=== PATIENT | male | born 1975 | race Caucasian/White ===

== ENCOUNTER 2018-04-25 18:49 | Inpatient (IN) | payer MEDICARE, OTHER ==
[~2018-04-25] VITALS: Ht 170.2 cm; Wt 87.4 kg
[~2018-04-25 18:49] MED LIST: ACET500 PO; ALBU90OI INH; ALLO300 PO; ALPR1 PO; AMOX500 PO; ARIP10 PO; ARIPIPRAZOLE5 MG PO; CEPH500 PO; CETI10 PO; CYAN1000 PO; ETOD300 PO; FLUO20 PO; HYDACE10B PO; HYDACE5 PO; HYDCHL12.5 PO; HYDPAM25 PO; Hair, Skin & N1 EACH PO; INDO50 PO; LISI20 PO; METO50ER PO; NAPR220 PO; NAPR500 PO; NAPR550 PO; OMEP20ER PO; OXYACE5T PO; PANT40 PO; PRAZ2 PO; PROM25 PO; PROP80ER PO; PROZAC; PYRI100 PO; RXHYD5325 PO; RXNAPNA550 PO; SALS750 PO; SERT100 PO; SUMA25 PO; SUMA6I SUBQ; THIA100 PO; TOPI25 PO; TOPI50 PO; TRAM50 PO
[2018-04-25] MEDS ORDERED: AMLO10 PO (19:06)
[2018-04-25] MEDS ORDERED: ATOR10 PO (19:07)
[2018-04-25] MEDS ORDERED: BUSP15 PO (19:08)
[2018-04-25] MEDS ORDERED: TYLECOD3 PO (19:09)
[2018-04-25] MEDS ORDERED: GABA600 PO (19:09)
[2018-04-25] MEDS ORDERED: HYDPAM50 PO (19:09)
[2018-04-25] MEDS ORDERED: LISI20 PO (19:10)
[2018-04-25] MEDS ORDERED: PANT40 PO (19:10)
[2018-04-25] MEDS ORDERED: PROP80ER PO (19:10)
[2018-04-25] MEDS ORDERED: TOPI100 PO (19:11)
[2018-04-25] MEDS ORDERED: SERT100 PO (19:11)
[2018-04-25] MEDS ORDERED: TRAZ50 PO (19:11)
[2018-04-25 21:14] LABS: Hemoglobin 12.8 g/dL (13.5-17.5); Mean Corpuscular HGB 33.2 pg (26.0-34.0); Mean Corpuscular HGB Conc 34.6 g/dL (31.5-36.5); Mean Corpuscular Volume 96 fL (80-100); Mean Platelet Volume 10.9 fL (9.1-12.4); Platelet Count 248 K/mm3 (150-400); RDW Coefficient Variation 13.2 % (11.7-14.2); RDW Standard Deviation 46.3 fL (35.1-46.3); Red Blood Cell Count 3.86 M/mm3 (4.30-5.90); White Blood Cell Count 13.99 K/mm3 (4.00-11.30)
[2018-04-25 21:30] LABS: BAND PERCENT MAN 1 % (0-8); BASOPHILS PERCENT MAN 0 % (0-2); EOSINOPHILS ABSOLUTE MAN 0.69 K/mm3 (0.00-0.68); EOSINOPHILS PERCENT MAN 5 % (0-6); LYMPHOCYTES ABSOLUTE MAN 1.95 K/mm3 (0.84-5.20); LYMPHOCYTES PERCENT MAN 14 % (21-46); MONOCYTES ABSOLUTE MAN 0.69 K/mm3 (0.16-1.47); MONOCYTES PERCENT MAN 5 % (4-13); MYELOCYTE ABSOLUTE MAN 0.13 K/mm3 (0.00-0.00); MYELOCYTE PERCENT MAN 1 % (0-0); NEUTROPHILS ABSOLUTE MAN 10.49 K/mm3 (1.96-9.15); SEG NEUTROPHILS PERCENT MAN 74 % (41-73); TOTAL CELLS COUNTED 100
[2018-04-25 21:34] LABS: Troponin I <0.015 ng/mL (0.000-0.040)
[2018-04-25 21:38] LABS: Thyroid Stimulating Hormone 0.382 uIU/mL (0.360-4.800)
[2018-04-25 22:19] LABS: U Amphetamine Screen Not Detected; U Barbituate Screen Not Detected; U Benzodiazapine Screen Not Detected; U Buprenorphine Screen Not Detected; U Cannabinoids Screen DETECTED; U Cocaine Screen Not Detected; U Methadone Screen Not Detected; U Methamphetamine Screen Not Detected; U Opiates Screen DETECTED; U Oxycodone Screen Not Detected; U Phencyclidine Screen Not Detected; U Propoxyphene Screen Not Detected
[2018-04-26 02:35] LABS: Hematocrit 36.7 % (37.0-53.0); Mean Corpuscular HGB 32.8 pg (26.0-34.0); Mean Corpuscular HGB Conc 35.4 g/dL (31.5-36.5); Mean Platelet Volume 9.5 fL (9.1-12.4); Platelet Count 232 K/mm3 (150-400); RDW Coefficient Variation 12.9 % (11.7-14.2); RDW Standard Deviation 43.8 fL (35.1-46.3); Red Blood Cell Count 3.96 M/mm3 (4.30-5.90)
[2018-04-26 02:37] LABS: Mean Corpuscular Volume 93 fL (80-100)
[2018-04-26 02:52] LABS: Anion Gap 7 mmol/L (6-16); Blood Urea Nitrogen 16 mg/dL (8-24); Bun/Creatinine Ratio 14.3 (12.0-20.0); CO2, Blood 24 mmol/L (21-32); Calcium, Blood 8.3 mg/dL (8.5-10.1); Chloride, Blood 112 mmol/L (98-108); Creatinine, Blood 1.12 mg/dL (0.60-1.20); Glomerular Filtration Rate >60 (60-); Glucose, Blood 98 mg/dL (70-99); Potassium, Blood 3.3 mmol/L (3.5-5.5); Sodium, Blood 143 mmol/L (136-145)
== END 2018-04-26 09:00 | disposition home or self-care (01) | DRG 310 ==
LOC: ER 18:49 → PCU 21:11
PROVIDERS: Nurse Practitioner Acute Care
DX: R00.1 Bradycardia, unspecified (principal); G43.909 Migraine, unspecified, not intractable, without status migrainosus; G47.33 Obstructive sleep apnea (adult) (pediatric); R12 Heartburn; F32.9 Major depressive disorder, single episode, unspecified; I10 Essential (primary) hypertension; I71.4 Abdominal aortic aneurysm, without rupture; J30.2 Other seasonal allergic rhinitis; M10.9 Gout, unspecified; G47.00 Insomnia, unspecified; T44.7X5A Adverse effect of beta-adrenoreceptor antagonists, initial encounter; Y92.9 Unspecified place or not applicable
CPT/HCPCS: 36415; 71045; 80048; 83880; 84443; 84484; 85007; 85027; 93005; 93010; 94660; 94762; 99285-25; J7030

== ENCOUNTER 2019-02-10 16:50 | Inpatient (IN) | payer OTHER, MEDICARE ==
[~2019-02-10] VITALS: Ht 175.3 cm; Wt 90.7 kg
[~2019-02-10 16:50] MED LIST changes: +AMLO10 PO; +ATOR10 PO; +BUSP15 PO; +GABA600 PO; +HYDPAM50 PO; +TOPI100 PO; +TRAZ50 PO; +TYLECOD3 PO
[2019-02-10 17:17] LABS: Source, Urine Voided
[2019-02-10 17:20] LABS: Appearance, Urine Clear (Clear); Bilirubin, Urine Neg (Neg); Blood, Urine Neg (Neg); Color, Urine Yellow (P-Yellow); Glucose Qualitative, Urine Neg (Neg); Ketones, Urine Neg (Neg); Leukocyte Esterase, Urine Neg (Neg); Nitrite, Urine Neg (Neg); Protein, Urine 1+ (Neg); Specific Gravity, Urine 1.005 (1.003-1.022); Urobilinogen, Urine NORM (Normal)
[2019-02-10 17:23] LABS: BASOPHILS ABSOLUTE AUTO 0.07 K/mm3 (0.00-0.23); BASOPHILS PERCENT AUTO 0 % (0-2); EOSINOPHILS ABSOLUTE AUTO 0.28 K/mm3 (0.00-0.68); EOSINOPHILS PERCENT AUTO 2 % (0-6); Hematocrit 36.8 % (37.0-53.0); Hemoglobin 13.3 g/dL (13.5-17.5); IMMATURE GRAN ABSOLUTE AUTO 0.11 K/mm3 (0.00-0.10); IMMATURE GRAN PERCENT AUTO 1 % (0-1); LYMPHOCYTES ABSOLUTE AUTO 6.94 K/mm3 (0.84-5.20); LYMPHOCYTES PERCENT AUTO 41 % (21-46); MONOCYTES ABSOLUTE AUTO 1.72 K/mm3 (0.16-1.47); MONOCYTES PERCENT AUTO 10 % (4-13); Mean Corpuscular HGB 32.4 pg (26.0-34.0); Mean Corpuscular HGB Conc 36.1 g/dL (31.5-36.5); Mean Corpuscular Volume 90 fL (80-100); Mean Platelet Volume 9.9 fL (9.1-12.4); NEUTROPHILS ABSOLUTE AUTO 7.96 K/mm3 (1.96-9.15); NEUTROPHILS PERCENT AUTO 47 % (41-73); Platelet Count 264 K/mm3 (150-400); RDW Coefficient Variation 12.8 % (11.7-14.2); RDW Standard Deviation 41.4 fL (35.1-46.3); Red Blood Cell Count 4.11 M/mm3 (4.30-5.90); White Blood Cell Count 17.08 K/mm3 (4.00-11.30)
[2019-02-10 17:41] LABS: Alanine Aminotransfer (ALT/SGP 27 U/L (12-78); Albumin, Blood 4.3 g/dL (3.4-5.0); Albumin/Globulin Ratio 1.3 (0.8-1.8); Alk Phos 61 U/L (50-136); Anion Gap 8 mmol/L (6-16); Aspartate Aminotrans (AST/SGOT 17 U/L (12-37); Bilirubin, Total 0.5 mg/dL (0.1-1.0); Blood Urea Nitrogen 18 mg/dL (8-24); CO2, Blood 25 mmol/L (21-32); Calcium, Blood 9.5 mg/dL (8.5-10.1); Chloride, Blood 106 mmol/L (98-108); Creatinine, Blood 1.06 mg/dL (0.60-1.20); Globulin, Blood 3.4 g/dL (2.2-4.0); Glomerular Filtration Rate >60 (60-); Glucose, Blood 103 mg/dL (70-99); Potassium, Blood 2.8 mmol/L (3.5-5.5); Sodium, Blood 139 mmol/L (136-145); Total Protein, Blood 7.7 g/dL (6.4-8.2)
[2019-02-10 21:09] LABS: U Amphetamine Screen Not Detected; U Barbituate Screen Not Detected; U Benzodiazapine Screen Not Detected; U Methamphetamine Screen Not Detected
[2019-02-10 21:10] LABS: U Buprenorphine Screen Not Detected; U Cannabinoids Screen DETECTED; U Cocaine Screen Not Detected; U Methadone Screen Not Detected; U Opiates Screen DETECTED; U Oxycodone Screen Not Detected; U Phencyclidine Screen Not Detected; U Propoxyphene Screen Not Detected
[2019-02-10] MEDS ORDERED: Vitamin D2000 UNIT PO (21:22)
[2019-02-10] MEDS ORDERED: LUBRICATING PL1 EACH BOTHEYES (21:23)
[2019-02-10] MEDS ORDERED: Cardiovid Plus1 EACH PO (21:24)
[2019-02-11 05:28] LABS: Hematocrit 37.5 % (37.0-53.0); Hemoglobin 13.2 g/dL (13.5-17.5); Mean Corpuscular HGB 31.9 pg (26.0-34.0); Mean Corpuscular HGB Conc 35.2 g/dL (31.5-36.5); Mean Corpuscular Volume 91 fL (80-100); Mean Platelet Volume 9.7 fL (9.1-12.4); Platelet Count 245 K/mm3 (150-400); RDW Coefficient Variation 13.1 % (11.7-14.2); Red Blood Cell Count 4.14 M/mm3 (4.30-5.90); White Blood Cell Count 22.17 K/mm3 (4.00-11.30)
[2019-02-11 05:46] LABS: Anion Gap 8 mmol/L (6-16); Blood Urea Nitrogen 12 mg/dL (8-24); Bun/Creatinine Ratio 12.8 (12.0-20.0); CO2, Blood 26 mmol/L (21-32); Calcium, Blood 8.5 mg/dL (8.5-10.1); Chloride, Blood 107 mmol/L (98-108); Creatinine, Blood 0.94 mg/dL (0.60-1.20); Glomerular Filtration Rate >60 (60-); Glucose, Blood 123 mg/dL (70-99); Potassium, Blood 3.3 mmol/L (3.5-5.5); Sodium, Blood 141 mmol/L (136-145)
--- NOTE | 2019-02-11 20:02 | NUR ---
NOC SHIFT SUMMARY 02/10/19 PATIENT EXTREMELY PAINFUL AND NAUSEATED SINCE ARRIVING ON FLOOR AT 2400. ABDOMINAL CRAMPING AND MIGRAINE HEADACHE UNRELIEVED WITH IV OR PO MEDS. PATIENT VOMITED WITHIN 10 MINUTES OF TRYING TO TAKE PO HEADACHE MEDICATIONS. SEVERAL UNMEASURED EMESIS AND VOIDS. ABDOMEN RIDGED AND TENDER UPPER AND LOWER QUADRANTS.
--- NOTE | 2019-02-12 04:49 | NUR ---
NOC SHIFT SUMMARY PATIENT MUCH IMPROVED OVERNIGHT. ABLE TO TAKE MOST PO MEDS AT HS WITH EXCEPTION OF FISH OIL. SLEPT THROUGH 2400 DOSE OF REGLAN PER REQUEST TO NOT BE WOKEN FOR THE MED IF HE WAS ASLEEP. NO EMESIS NOTED. BOWEL TONES MORE ACTIVE TIMES 4. MEDICATED TWICE OVERNIGHT FOR HEADACHE WITH DILAUDID.
--- NOTE | 2019-02-12 18:26 | NUR ---
SUMMARY PT IS A/O X4, IND IN ROOM, PLEASANT AFFECT HOWEVER HE STATES CONTINUING MIGRAINE H/A PAIN. HAVE GIVEN IV DILAUDID 0.5MG APPROX Q4 HRS, IMITREX 100MG X1, TYLENOL 650MG FOR INTERMITTANT RELIEF. PT HAS KEPT DOOR CLOSED & LIGHTS OUT, HAS SHOWERED TO ATTEMPT TO ALIEVE H/A. HE STATE MILD NAUSEA HOWEVER NO EMESIS, HAS BEEN ABLE TO EAT SM AMTS. VSS.
--- NOTE | 2019-02-13 06:32 | NUR ---
SHIFT SUMMARY PT IS A 43 Y/O MALE, ADMITTED FOR INTRACTABLE N/V AND MIGRAINE. HE IS A&O X 4, AND INDEPENDENT IN THE ROOM. PT REPORTED MILD NAUSEA AT BEDTIME, WHICH WAS RELIEVED WITH 4 MG ZOFRAN. HE WAS ABLE TO KEEP HIS MEDS DOWN WITH NO VOMITING OR EMESIS. PT WAS MEDICATED TWICE WITH PRN DILAUDID FOR HEADACHE. NO C/O SOB. VITAL SIGNS STABLE. NO OTHER ACUTE CHANGES IN PT CONDITION NOTED DURING THE NIGHT. WILL CONTINUE TO MONITOR AND TREAT PER EMAR UNTIL HAND OFF TO DAY SHIFT RN.
[2019-02-13 08:48] LABS: Hematocrit 37.7 % (37.0-53.0); Hemoglobin 13.1 g/dL (13.5-17.5)
[2019-02-13 09:04] LABS: Anion Gap 5 mmol/L (6-16); Blood Urea Nitrogen 17 mg/dL (8-24); Bun/Creatinine Ratio 15.9 (12.0-20.0); CO2, Blood 30 mmol/L (21-32); Calcium, Blood 8.8 mg/dL (8.5-10.1); Chloride, Blood 105 mmol/L (98-108); Creatinine, Blood 1.07 mg/dL (0.60-1.20); Glomerular Filtration Rate >60 (60-); Glucose, Blood 94 mg/dL (70-99); Potassium, Blood 3.5 mmol/L (3.5-5.5); Sodium, Blood 140 mmol/L (136-145)
[2019-02-13] MEDS ORDERED: METO10 (11:28)
[2019-02-13] MEDS ORDERED: Promethazine12.5 M1 PO (11:30)
--- NOTE | 2019-02-13 14:22 | NUR ---
DISCHARGE NOTE MEDICATIONS FAXED TO PREFERED PHARMACY. IV DC'D WNL. TELEMETRY DC'D. PT PROVIDED WITH HARDCOPY AND VERBAL INSTRUCTIONS FOR DISCHARGE RE: DIAGNOSES, MEDICATIONS, FOLLOW UP APPOINTMENTS. PT HAD NO FURTHER QUESTIONS. FAMILY NOTIFIED OF DISCHARGE. PERSONAL POSSESSIONS GATHERED. PT DRESSED IN PERSONAL CLOTHING. PT ESCORTED OUT BY [employer] VIA WHEELCHAIR
== END 2019-02-13 13:27 | disposition home or self-care (01) | DRG 103 ==
LOC: ER 16:50 → MEDS 16:51 → ENPENDDIS 02-13 11:00 → MEDS 02-13 13:27
PROVIDERS: Emergency Medicine; Internal Medicine; ADMIT Hospitalist
DX: G43.A1 Cyclical vomiting, in migraine, intractable (principal); T40.7X5A Adverse effect of cannabis (derivatives), initial encounter; G44.89 Other headache syndrome; I10 Essential (primary) hypertension; E87.6 Hypokalemia; G47.33 Obstructive sleep apnea (adult) (pediatric); F12.20 Cannabis dependence, uncomplicated; F41.8 Other specified anxiety disorders; K21.9 Gastro-esophageal reflux disease without esophagitis; E78.5 Hyperlipidemia, unspecified; I71.4 Abdominal aortic aneurysm, without rupture; F12.90 Cannabis use, unspecified, uncomplicated
CPT/HCPCS: 36415; 70450; 74177; 80048; 80053; 83690; 83735; 85014; 85018; 85025; 85027; 93005; 93010; 96361; 96365-59; 96366; 96372; 96375; 96376; 99285-25; A9270; C9113; G0378; J0780; J1170; J1200; J2405; J2550; J2765; J2920; J3030; J3480; J7030; Q9967

== ENCOUNTER 2019-06-12 11:53 | Emergency (ER) | payer MEDICARE, OTHER ==
[~2019-06-12] VITALS: Ht 167.6 cm; Wt 86.6 kg
[~2019-06-12 11:53] MED LIST changes: +Cardiovid Plus1 EACH PO; +LUBRICATING PL1 EACH BOTHEYES; +METO10; +Promethazine12.5 M1 PO; +Vitamin D2000 UNIT PO
[2019-06-12] MEDS ORDERED: CODE30 (12:16)
[2019-06-12] MEDS ORDERED: DIVA125EC (12:16)
[2019-06-12] MEDS ORDERED: GABA300 PO (12:17)
[2019-06-12] MEDS ORDERED: HYDHCL25 PO (12:17)
[2019-06-12] MEDS ORDERED: LISI20 PO (12:17)
[2019-06-12] MEDS ORDERED: PANT40 PO (12:18)
[2019-06-12] MEDS ORDERED: PROM25 (12:18)
[2019-06-12] MEDS ORDERED: METO10 PO (12:18)
[2019-06-12] MEDS ORDERED: SERT100 PO (12:19)
[2019-06-12] MEDS ORDERED: TRAZ50 (12:19)
[2019-06-12 13:59] LABS: BASOPHILS ABSOLUTE AUTO 0.05 K/mm3 (0.00-0.23); BASOPHILS PERCENT AUTO 0 % (0-2); EOSINOPHILS ABSOLUTE AUTO 0.08 K/mm3 (0.00-0.68); EOSINOPHILS PERCENT AUTO 1 % (0-6); Hematocrit 38.8 % (37.0-53.0); Hemoglobin 13.7 g/dL (13.5-17.5); IMMATURE GRAN ABSOLUTE AUTO 0.07 K/mm3 (0.00-0.10); IMMATURE GRAN PERCENT AUTO 1 % (0-1); LYMPHOCYTES ABSOLUTE AUTO 1.67 K/mm3 (0.84-5.20); LYMPHOCYTES PERCENT AUTO 14 % (21-46); MONOCYTES ABSOLUTE AUTO 0.92 K/mm3 (0.16-1.47); MONOCYTES PERCENT AUTO 8 % (4-13); Mean Corpuscular HGB 32.4 pg (26.0-34.0); Mean Corpuscular HGB Conc 35.3 g/dL (31.5-36.5); Mean Corpuscular Volume 92 fL (80-100); Mean Platelet Volume 10.7 fL (9.1-12.4); NEUTROPHILS PERCENT AUTO 76 % (41-73); Platelet Count 294 K/mm3 (150-400); RDW Coefficient Variation 12.2 % (11.7-14.2); RDW Standard Deviation 41.1 fL (35.1-46.3); Red Blood Cell Count 4.23 M/mm3 (4.30-5.90); White Blood Cell Count 11.69 K/mm3 (4.00-11.30)
[2019-06-12 14:22] LABS: Alanine Aminotransfer (ALT/SGP 19 U/L (12-78); Alk Phos 58 U/L (50-136); Anion Gap 8 mmol/L (6-16); Aspartate Aminotrans (AST/SGOT 15 U/L (12-37); Bilirubin, Total 0.3 mg/dL (0.1-1.0); Blood Urea Nitrogen 14 mg/dL (8-24); Bun/Creatinine Ratio 15.5 (12.0-20.0); CO2, Blood 24 mmol/L (21-32); Chloride, Blood 106 mmol/L (98-108); Glomerular Filtration Rate >60 (60-); Glucose, Blood 104 mg/dL (70-99); Potassium, Blood 3.6 mmol/L (3.5-5.5); Sodium, Blood 138 mmol/L (136-145)
[2019-06-12 14:56] LABS: Ethanol (Alcohol), Blood, Med <3 mg/dL; Magnesium, Blood 2.1 mg/dL (1.6-2.4)
[2019-06-12 14:59] LABS: Thyroid Stimulating Hormone 0.915 uIU/mL (0.360-4.800)
[2019-06-12 15:17] LABS: Valproic Acid 28.3 ug/mL (50.0-100.0)
[2019-06-12 15:55] LABS: U Cannabinoids Screen DETECTED; U Opiates Screen DETECTED
[2019-06-12 15:56] LABS: U Amphetamine Screen Not Detected; U Barbituate Screen Not Detected; U Benzodiazapine Screen Not Detected; U Buprenorphine Screen Not Detected; U Cocaine Screen Not Detected; U Methadone Screen Not Detected; U Methamphetamine Screen Not Detected; U Oxycodone Screen Not Detected; U Propoxyphene Screen Not Detected
[2019-06-12] MEDS ORDERED: LEVE500 PO ×2 (16:54)
[2019-06-12] MEDS ORDERED: Ondansetron Odt8 MG MM (16:54)
== END 2019-06-12 17:44 | disposition home or self-care (01) ==
LOC: ER 11:53
PROVIDERS: Emergency Medicine
DX: R56.9 Unspecified convulsions (principal); F43.10 Post-traumatic stress disorder, unspecified; F12.10 Cannabis abuse, uncomplicated; G43.909 Migraine, unspecified, not intractable, without status migrainosus; I71.4 Abdominal aortic aneurysm, without rupture; Z79.899 Other long term (current) drug therapy; I10 Essential (primary) hypertension; E78.5 Hyperlipidemia, unspecified
CPT/HCPCS: 70450; 80053; 80164; 83735; 84146; 84443; 85025; 93005; 93010; 96361; 96372-59; 96374; 96375; 96376; 99285-25; G0480; J1200; J1630; J2405; J2765; J3030; J7030

== ENCOUNTER 2019-06-22 14:37 | Emergency (ER) | payer MEDICARE, OTHER ==
[~2019-06-22] VITALS: Ht 167.6 cm; Wt 87.1 kg
[~2019-06-22 14:37] MED LIST changes: +CODE30; +DIVA125EC PO; +Gabapentin600 MG PO; +HYDHCL25 PO; +LEVE500 PO; +METO10 PO; +Ondansetron Odt8 MG MM; +PROM25
[2019-06-22] MEDS ORDERED: CHLO25B PO (15:07)
[2019-06-22] MEDS ORDERED: IBUP800 PO (15:10)
[2019-06-22 15:12] LABS: BASOPHILS ABSOLUTE AUTO 0.06 K/mm3 (0.00-0.23); BASOPHILS PERCENT AUTO 1 % (0-2); EOSINOPHILS ABSOLUTE AUTO 0.66 K/mm3 (0.00-0.68); EOSINOPHILS PERCENT AUTO 6 % (0-6); Hematocrit 33.6 % (37.0-53.0); Hemoglobin 11.7 g/dL (13.5-17.5); IMMATURE GRAN ABSOLUTE AUTO 0.04 K/mm3 (0.00-0.10); IMMATURE GRAN PERCENT AUTO 0 % (0-1); LYMPHOCYTES ABSOLUTE AUTO 3.79 K/mm3 (0.84-5.20); LYMPHOCYTES PERCENT AUTO 36 % (21-46); MONOCYTES ABSOLUTE AUTO 1.34 K/mm3 (0.16-1.47); MONOCYTES PERCENT AUTO 13 % (4-13); Mean Corpuscular HGB 32.1 pg (26.0-34.0); Mean Corpuscular HGB Conc 34.8 g/dL (31.5-36.5); Mean Corpuscular Volume 92 fL (80-100); NEUTROPHILS ABSOLUTE AUTO 4.75 K/mm3 (1.96-9.15); NEUTROPHILS PERCENT AUTO 45 % (41-73); Platelet Count 273 K/mm3 (150-400); RDW Coefficient Variation 12.2 % (11.7-14.2); RDW Standard Deviation 41.5 fL (35.1-46.3); Red Blood Cell Count 3.64 M/mm3 (4.30-5.90); White Blood Cell Count 10.64 K/mm3 (4.00-11.30)
[2019-06-22] MEDS ORDERED: LEVE500 PO ×2 (15:12)
[2019-06-22 15:47] LABS: Alanine Aminotransfer (ALT/SGP 15 U/L (12-78); Albumin, Blood 3.6 g/dL (3.4-5.0); Albumin/Globulin Ratio 1.1 (0.8-1.8); Alk Phos 52 U/L (50-136); Anion Gap 3 mmol/L (6-16); Aspartate Aminotrans (AST/SGOT 10 U/L (12-37); Bilirubin, Total 0.3 mg/dL (0.1-1.0); Blood Urea Nitrogen 15 mg/dL (8-24); Bun/Creatinine Ratio 16.8 (12.0-20.0); CO2, Blood 30 mmol/L (21-32); Calcium, Blood 8.9 mg/dL (8.5-10.1); Chloride, Blood 108 mmol/L (98-108); Creatinine, Blood 0.89 mg/dL (0.60-1.20); Globulin, Blood 3.3 g/dL (2.2-4.0); Glomerular Filtration Rate >60 (60-); Glucose, Blood 91 mg/dL (70-99); Potassium, Blood 3.4 mmol/L (3.5-5.5); Sodium, Blood 141 mmol/L (136-145); Total Protein, Blood 6.9 g/dL (6.4-8.2); Troponin I <0.015 ng/mL (0.000-0.040)
[2019-06-22] MEDS ORDERED: Norco 5-325 Ta1 EACH PO (16:40)
== END 2019-06-22 17:18 | disposition home or self-care (01) ==
LOC: ER 14:37
PROVIDERS: Emergency Medicine; Physician Assistant
DX: R07.9 Chest pain, unspecified (principal); F32.9 Major depressive disorder, single episode, unspecified; I10 Essential (primary) hypertension; G43.909 Migraine, unspecified, not intractable, without status migrainosus
CPT/HCPCS: 71046; 71275; 74175; 80053; 80164; 83690; 83880; 84484; 85025; 93005; 93010; 96374-59; 96375-59; 99285-25; J1170; J2405; Q9967

== ENCOUNTER 2019-06-28 14:41 | Emergency (ER) | payer MEDICARE, OTHER ==
[~2019-06-28] VITALS: Ht 167.6 cm; Wt 89.8 kg
[~2019-06-28 14:41] MED LIST changes: +CHLO25B PO; +IBUP800 PO; +Norco 5-325 Ta1 EACH PO
[2019-06-28 15:06] LABS: BASOPHILS ABSOLUTE AUTO 0.06 K/mm3 (0.00-0.23); BASOPHILS PERCENT AUTO 0 % (0-2); EOSINOPHILS PERCENT AUTO 5 % (0-6); Hematocrit 38.1 % (37.0-53.0); Hemoglobin 13.8 g/dL (13.5-17.5); IMMATURE GRAN ABSOLUTE AUTO 0.05 K/mm3 (0.00-0.10); IMMATURE GRAN PERCENT AUTO 0 % (0-1); LYMPHOCYTES ABSOLUTE AUTO 4.84 K/mm3 (0.84-5.20); LYMPHOCYTES PERCENT AUTO 32 % (21-46); MONOCYTES ABSOLUTE AUTO 1.28 K/mm3 (0.16-1.47); MONOCYTES PERCENT AUTO 9 % (4-13); Mean Corpuscular HGB 32.2 pg (26.0-34.0); Mean Corpuscular HGB Conc 36.2 g/dL (31.5-36.5); Mean Corpuscular Volume 89 fL (80-100); Mean Platelet Volume 10.2 fL (9.1-12.4); NEUTROPHILS ABSOLUTE AUTO 8.06 K/mm3 (1.96-9.15); NEUTROPHILS PERCENT AUTO 54 % (41-73); Platelet Count 295 K/mm3 (150-400); RDW Coefficient Variation 12.3 % (11.7-14.2); RDW Standard Deviation 40.2 fL (35.1-46.3); Red Blood Cell Count 4.28 M/mm3 (4.30-5.90); White Blood Cell Count 14.99 K/mm3 (4.00-11.30)
[2019-06-28] MEDS ORDERED: PROM25 (15:17)
[2019-06-28] MEDS ORDERED: METO10 (15:17)
[2019-06-28 15:32] LABS: Alanine Aminotransfer (ALT/SGP 28 U/L (12-78); Alk Phos 66 U/L (50-136); Anion Gap 8 mmol/L (6-16); Aspartate Aminotrans (AST/SGOT 12 U/L (12-37); Bilirubin, Total 0.4 mg/dL (0.1-1.0); Blood Urea Nitrogen 16 mg/dL (8-24); Bun/Creatinine Ratio 12.5 (12.0-20.0); CO2, Blood 27 mmol/L (21-32); Calcium, Blood 9.4 mg/dL (8.5-10.1); Chloride, Blood 106 mmol/L (98-108); Creatinine, Blood 1.28 mg/dL (0.60-1.20); Globulin, Blood 4.1 g/dL (2.2-4.0); Glomerular Filtration Rate >60 (60-); Glucose, Blood 90 mg/dL (70-99); Potassium, Blood 2.9 mmol/L (3.5-5.5); Sodium, Blood 141 mmol/L (136-145); Total Protein, Blood 8.1 g/dL (6.4-8.2); Troponin I <0.015 ng/mL (0.000-0.040)
== END 2019-06-28 17:30 | disposition home or self-care (01) ==
LOC: ER 14:41
PROVIDERS: Physician Assistant
DX: R07.9 Chest pain, unspecified (principal); I71.2 Thoracic aortic aneurysm, without rupture; Q23.1 Congenital insufficiency of aortic valve; G40.909 Epilepsy, unspecified, not intractable, without status epilepticus; I10 Essential (primary) hypertension; G43.909 Migraine, unspecified, not intractable, without status migrainosus; F32.9 Major depressive disorder, single episode, unspecified; Z79.899 Other long term (current) drug therapy
CPT/HCPCS: 71046; 71275; 80053; 84484; 85025; 93005; 93010; 96374; 96375; 99285-25; J1170; J2270; Q9967

== ENCOUNTER 2021-07-04 07:49 | Day surgery (SDC) | payer OTHER ==
[~2021-07-04] VITALS: Ht 167.6 cm; Wt 80.1 kg
--- NOTE | 2021-07-04 09:03 | NUR ---
07/04/21 0903 Francisco [id number] GIVEN PER ORDERS WHILE IN PRE OP DUE TO C/O NAUSEA.
--- NOTE | 2021-07-04 09:48 | NUR ---
07/04/21 0948 Mauricio Mg 0.15MG EPI ADDED TO 30MLS 0.5% BUPIVACAINE TO ACHIEVE SOLUTION OF 1:200,000.
--- NOTE | 2021-07-04 11:02 | NUR ---
07/04/21 1102 Julee Mukherjee REPORT WAS TAKEN FROM BRYCE HAZEL AT 10:55; BRYCE MEDINA TOOK CARE OF PATIENT AT THIS TIME.
== END 2021-07-04 11:33 | disposition home or self-care (01) ==
LOC: ORSCSDS 07:49
PROVIDERS: Orthopaedic Surgery
PROC: 0SBC4ZZ Excision of Right Knee Joint, Percutaneous Endoscopic Approach (ICD-10-PCS; principal; 2021-07-04 09:15)
DX: S83.241A Other tear of medial meniscus, current injury, right knee, initial encounter (principal); M94.261 Chondromalacia, right knee; I10 Essential (primary) hypertension; E78.5 Hyperlipidemia, unspecified; G47.33 Obstructive sleep apnea (adult) (pediatric); F41.8 Other specified anxiety disorders; Z79.899 Other long term (current) drug therapy
CPT/HCPCS: J0171; J0690; J1100; J1885; J2250; J2405; J2704; J3010

== ENCOUNTER 2021-08-21 19:07 | Emergency (ER) | payer OTHER ==
[~2021-08-21] VITALS: Ht 167.6 cm; Wt 77.1 kg
[2021-08-21] MEDS ORDERED: CARBOXYMETHYLC1 EACH BOTHEYES (19:30)
[2021-08-21] MEDS ORDERED: CODE30 (19:31)
[2021-08-21] MEDS ORDERED: FISH OIL 1,2001 EAC4 PO (19:32)
[2021-08-21] MEDS ORDERED: DOCU100 PO (19:32)
[2021-08-21] MEDS ORDERED: PANT40 PO (19:33)
[2021-08-21] MEDS ORDERED: METO50ER PO (19:33)
[2021-08-21] MEDS ORDERED: MIRALAX11910 PO (19:33)
[2021-08-21] MEDS ORDERED: ONDA4ODT MM (19:33)
[2021-08-21] MEDS ORDERED: SENN187 PO (19:33)
[2021-08-21 19:44] LABS: BASOPHILS ABSOLUTE AUTO 0.07 K/mm3 (0.00-0.23); BASOPHILS PERCENT AUTO 1 % (0-2); EOSINOPHILS ABSOLUTE AUTO 0.79 K/mm3 (0.00-0.68); EOSINOPHILS PERCENT AUTO 6 % (0-6); Hematocrit 34.1 % (37.0-53.0); Hemoglobin 12.2 g/dL (13.5-17.5); IMMATURE GRAN ABSOLUTE AUTO 0.07 K/mm3 (0.00-0.10); IMMATURE GRAN PERCENT AUTO 1 % (0-1); LYMPHOCYTES ABSOLUTE AUTO 4.06 K/mm3 (0.84-5.20); LYMPHOCYTES PERCENT AUTO 32 % (21-46); MONOCYTES ABSOLUTE AUTO 1.09 K/mm3 (0.16-1.47); MONOCYTES PERCENT AUTO 9 % (4-13); Mean Corpuscular HGB 32.3 pg (26.0-34.0); Mean Corpuscular HGB Conc 35.8 g/dL (31.5-36.5); Mean Corpuscular Volume 90 fL (80-100); Mean Platelet Volume 11.2 fL (9.1-12.4); NEUTROPHILS ABSOLUTE AUTO 6.58 K/mm3 (1.96-9.15); NEUTROPHILS PERCENT AUTO 52 % (41-73); Platelet Count 217 K/mm3 (150-400); RDW Coefficient Variation 11.9 % (11.7-14.2); RDW Standard Deviation 38.9 fL (35.1-46.3); Red Blood Cell Count 3.78 M/mm3 (4.30-5.90); White Blood Cell Count 12.66 K/mm3 (4.00-11.30)
[2021-08-21 19:56] LABS: Alanine Aminotransfer (ALT/SGP 16 U/L (12-78); Albumin, Blood 3.3 g/dL (3.4-5.0); Albumin/Globulin Ratio 0.8 (0.8-1.8); Alk Phos 71 U/L (50-136); Anion Gap 7 mmol/L (6-16); Aspartate Aminotrans (AST/SGOT 10 U/L (12-37); Bilirubin, Total 0.3 mg/dL (0.1-1.0); Blood Urea Nitrogen 20 mg/dL (8-24); Bun/Creatinine Ratio 16.8 (12.0-20.0); CO2, Blood 33 mmol/L (21-32); Calcium, Blood 8.6 mg/dL (8.5-10.1); Chloride, Blood 93 mmol/L (98-108); Creatinine, Blood 1.19 mg/dL (0.60-1.20); Globulin, Blood 3.9 g/dL (2.2-4.0); Glomerular Filtration Rate >60 (60-); Glucose, Blood 108 mg/dL (70-99); Potassium, Blood 2.8 mmol/L (3.5-5.5); Sodium, Blood 133 mmol/L (136-145); Total Protein, Blood 7.2 g/dL (6.4-8.2)
== END 2021-08-22 00:06 | disposition home or self-care (01) ==
LOC: ER 19:07
PROVIDERS: Emergency Medicine
DX: R07.9 Chest pain, unspecified (principal); R51.9 Headache, unspecified; E78.5 Hyperlipidemia, unspecified; I10 Essential (primary) hypertension; Z79.899 Other long term (current) drug therapy
CPT/HCPCS: 71275; 80053; 84484; 85025; 93005; 93010; 96374-59; 96375-59; 96376-59; 99284-25; A9270; J2270; J2405; Q9967

== ENCOUNTER 2021-10-18 18:29 | Emergency (ER) | payer OTHER ==
[~2021-10-18] VITALS: Ht 167.6 cm; Wt 86.2 kg
[~2021-10-18 18:29] MED LIST changes: +CARBOXYMETHYLC1 EACH BOTHEYES; +DOCU100 PO; +FISH OIL 1,2001 EAC4 PO; +MIRALAX11910 PO; +ONDA4ODT MM; +SENN187 PO
[2021-10-18 19:32] LABS: Influenza A, PCR NEGATIVE (NEGATIVE); Influenza B, PCR NEGATIVE (NEGATIVE); Resp Syncytial Virus, PCR NEGATIVE (NEGATIVE)
[2021-10-18 19:41] LABS: SARS-Cov-2 (COVID-19) PCR, MMC POSITIVE (NEGATIVE)
== END 2021-10-19 02:09 | disposition home or self-care (01) ==
LOC: ER 18:29
PROVIDERS: Physician Assistant
DX: U07.1 COVID-19 (principal); I10 Essential (primary) hypertension; E78.5 Hyperlipidemia, unspecified; G47.33 Obstructive sleep apnea (adult) (pediatric); Z79.899 Other long term (current) drug therapy
CPT/HCPCS: 0241U; 93005; 93010; 99283-25; A9270; M0222

== ENCOUNTER 2021-12-16 18:53 | Emergency (ER) | payer OTHER ==
[~2021-12-16] VITALS: Ht 167.6 cm; Wt 76.2 kg
[2021-12-16 19:55] LABS: BASOPHILS ABSOLUTE AUTO 0.06 K/mm3 (0.00-0.23); BASOPHILS PERCENT AUTO 1 % (0-2); EOSINOPHILS ABSOLUTE AUTO 0.46 K/mm3 (0.00-0.68); EOSINOPHILS PERCENT AUTO 4 % (0-6); Hematocrit 38.9 % (37.0-53.0); Hemoglobin 13.6 g/dL (13.5-17.5); IMMATURE GRAN ABSOLUTE AUTO 0.06 K/mm3 (0.00-0.10); IMMATURE GRAN PERCENT AUTO 1 % (0-1); LYMPHOCYTES ABSOLUTE AUTO 2.42 K/mm3 (0.84-5.20); LYMPHOCYTES PERCENT AUTO 22 % (21-46); MONOCYTES ABSOLUTE AUTO 0.99 K/mm3 (0.16-1.47); MONOCYTES PERCENT AUTO 9 % (4-13); Mean Corpuscular HGB 32.7 pg (26.0-34.0); Mean Corpuscular Volume 94 fL (80-100); Mean Platelet Volume 10.2 fL (9.1-12.4); NEUTROPHILS ABSOLUTE AUTO 7.28 K/mm3 (1.96-9.15); NEUTROPHILS PERCENT AUTO 65 % (41-73); Platelet Count 277 K/mm3 (150-400); RDW Coefficient Variation 12.4 % (11.7-14.2); RDW Standard Deviation 42.7 fL (35.1-46.3); Red Blood Cell Count 4.16 M/mm3 (4.30-5.90); White Blood Cell Count 11.27 K/mm3 (4.00-11.30)
[2021-12-16 20:17] LABS: Magnesium, Blood 2.3 mg/dL (1.6-2.4)
[2021-12-16 20:20] LABS: Albumin, Blood 3.6 g/dL (3.4-5.0); Albumin/Globulin Ratio 0.9 (0.8-1.8); Bilirubin, Total 0.4 mg/dL (0.1-1.0); Bun/Creatinine Ratio 12.6 (12.0-20.0); Calcium, Blood 9.5 mg/dL (8.5-10.1); Creatinine, Blood 1.03 mg/dL (0.60-1.20); Globulin, Blood 3.9 g/dL (2.2-4.0); Potassium, Blood 3.9 mmol/L (3.5-5.5); Thyroid Stimulating Hormone 1.25 uIU/mL (0.360-4.800); Total Protein, Blood 7.5 g/dL (6.4-8.2)
== END 2021-12-16 21:41 | disposition home or self-care (01) ==
LOC: ER 18:53
PROVIDERS: Student in an Organized Health Care Education/Training Program
DX: R53.1 Weakness (principal); R20.2 Paresthesia of skin; I10 Essential (primary) hypertension; E78.5 Hyperlipidemia, unspecified; G47.33 Obstructive sleep apnea (adult) (pediatric); Z79.899 Other long term (current) drug therapy
CPT/HCPCS: 36415; 80053; 83735; 84443; 85025; 93005; 93010; 99285-25; A9270

== ENCOUNTER 2023-02-11 12:30 | Emergency (ER) | payer OTHER ==
[~2023-02-11] VITALS: Ht 167.6 cm; Wt 80.3 kg
[~2023-02-11 12:30] MED LIST changes: -AMLO10 PO; -BUSP15 PO; +BUSP5 PO; +CODACE30 PO; +CODE30 PO; -DIVA125EC PO; +DIVA250EC PO; +LEVSOD25 PO; +NORVASC10 MG PO; +POTCHL20ER PO
[2023-02-11 12:56] LABS: BASOPHILS ABSOLUTE AUTO 0.05 K/mm3 (0.00-0.23); BASOPHILS PERCENT AUTO 1 % (0-2); EOSINOPHILS ABSOLUTE AUTO 0.22 K/mm3 (0.00-0.68); EOSINOPHILS PERCENT AUTO 2 % (0-6); Hematocrit 37.9 % (37.0-53.0); Hemoglobin 13.5 g/dL (13.5-17.5); IMMATURE GRAN ABSOLUTE AUTO 0.02 K/mm3 (0.00-0.10); IMMATURE GRAN PERCENT AUTO 0 % (0-1); LYMPHOCYTES ABSOLUTE AUTO 3.16 K/mm3 (0.84-5.20); LYMPHOCYTES PERCENT AUTO 33 % (21-46); MONOCYTES ABSOLUTE AUTO 0.91 K/mm3 (0.16-1.47); MONOCYTES PERCENT AUTO 10 % (4-13); Mean Corpuscular HGB Conc 35.6 g/dL (31.5-36.5); Mean Corpuscular Volume 93 fL (80-100); Mean Platelet Volume 11.3 fL (9.1-12.4); NEUTROPHILS ABSOLUTE AUTO 5.13 K/mm3 (1.96-9.15); NEUTROPHILS PERCENT AUTO 54 % (41-73); Platelet Count 200 K/mm3 (150-400); RDW Coefficient Variation 11.7 % (11.7-14.2); RDW Standard Deviation 39.3 fL (35.1-46.3); Red Blood Cell Count 4.09 M/mm3 (4.30-5.90); White Blood Cell Count 9.49 K/mm3 (4.00-11.30)
[2023-02-11 13:18] LABS: Albumin, Blood 3.7 g/dL (3.4-5.0); Albumin/Globulin Ratio 0.9 (0.8-1.8); Bilirubin, Total 0.9 mg/dL (0.1-1.0); Bun/Creatinine Ratio 15.7 (12.0-20.0); Calcium, Blood 9.2 mg/dL (8.5-10.1); Creatinine, Blood 1.15 mg/dL (0.60-1.20); Globulin, Blood 3.9 g/dL (2.2-4.0); Potassium, Blood 3.3 mmol/L (3.5-5.5); Total Protein, Blood 7.6 g/dL (6.4-8.2)
[2023-02-11 18:30] VITALS: BP 139/111
== END 2023-02-11 18:49 | disposition home or self-care (01) ==
LOC: ER 12:30
PROVIDERS: Emergency Medicine
DX: R07.9 Chest pain, unspecified (principal); R51.9 Headache, unspecified; I10 Essential (primary) hypertension; G47.33 Obstructive sleep apnea (adult) (pediatric); E78.5 Hyperlipidemia, unspecified; Z91.048 Other nonmedicinal substance allergy status; Z79.899 Other long term (current) drug therapy; G47.00 Insomnia, unspecified
CPT/HCPCS: 71046; 71275; 80053; 84484; 85025; 93005; 93010; 96365; 96375; 99284-25; J1885; J2270; J2405; J7050; Q9967

== ENCOUNTER 2024-02-14 12:12 | Day surgery (SDC) | payer OTHER ==
[~2024-02-14] VITALS: Ht 167.6 cm; Wt 76.0 kg
[~2024-02-14 12:12] MED LIST changes: +Lactated Ringer's 1,000 ML IV ONE; +Lidocaine 2% 5 ML SDV ONE; +Lidocaine HCl/Pf 1% 5 ML VIAL ONE; +Robaxin750 MG PO
[2024-02-14] MEDS ORDERED: ACET500 (13:52)
[2024-02-14] MEDS ORDERED: AMOX500 (13:53)
[2024-02-14] MEDS ORDERED: BUPRENORPHINE (13:55)
[2024-02-14] MEDS ORDERED: CHLO25B (13:56)
[2024-02-14] MEDS ORDERED: NARCAN4 M1 (13:58)
[2024-02-14] MEDS ORDERED: METO50ER (13:59)
[2024-02-14] MEDS ORDERED: DOCU100 (14:00)
[2024-02-14] MEDS ORDERED: SIME80CH (14:01)
[2024-02-14] MEDS ORDERED: LIDO700A20 (14:01)
[2024-02-14] MEDS ORDERED: ZADITOR5 M1 (14:01)
[2024-02-14] MEDS ORDERED: propofoL 50 ML IV ONE (14:28)
[2024-02-14] MEDS ORDERED: Lactated Ringer's 1,000 ML IV ONE (14:29)
[2024-02-14 15:50] VITALS: BP 157/103
== END 2024-02-14 15:54 | disposition home or self-care (01) ==
LOC: ORSCSDS 12:12
PROVIDERS: Internal Medicine Gastroenterology
PROC: 0DBL8ZX Excision of Transverse Colon, Via Natural or Artificial Opening Endoscopic, Diagnostic (ICD-10-PCS; principal; 2024-02-14 13:45)
PROC: 0DBH8ZX Excision of Cecum, Via Natural or Artificial Opening Endoscopic, Diagnostic (ICD-10-PCS; principal; 2024-02-14 13:45)
PROC: 0DB58ZX Excision of Esophagus, Via Natural or Artificial Opening Endoscopic, Diagnostic (ICD-10-PCS; principal; 2024-02-14 13:45)
PROC: 0DB78ZX Excision of Stomach, Pylorus, Via Natural or Artificial Opening Endoscopic, Diagnostic (ICD-10-PCS; principal; 2024-02-14 13:45)
DX: K21.9 Gastro-esophageal reflux disease without esophagitis (principal); R11.0 Nausea; Z15.09 Genetic susceptibility to other malignant neoplasm; K59.00 Constipation, unspecified; D12.0 Benign neoplasm of cecum; D12.3 Benign neoplasm of transverse colon; K22.70 Barrett's esophagus without dysplasia; K29.70 Gastritis, unspecified, without bleeding; K57.10 Diverticulosis of small intestine without perforation or abscess without bleeding; G47.33 Obstructive sleep apnea (adult) (pediatric); I10 Essential (primary) hypertension; Z79.899 Other long term (current) drug therapy
CPT/HCPCS: 88305; 88312; 88342; J2001; J2003; J2704; J7120

== ENCOUNTER 2024-05-17 12:15 | Day surgery (SDC) | payer OTHER ==
[~2024-05-17] VITALS: Ht 167.6 cm; Wt 74.4 kg
[~2024-05-17 12:15] MED LIST changes: +ACET500; +AMOX500; +BUPRENORPHINE; +CHLO25B; +DOCU100; +LIDO700A20; -Lidocaine 2% 5 ML SDV ONE; -Lidocaine HCl/Pf 1% 5 ML VIAL ONE; +METO50ER; +NARCAN4 M1; +SIME80CH; +ZADITOR5 M1; +propofoL 50 ML IV ONE
[2024-05-17] MEDS ORDERED: Lactated Ringer's 1,000 ML IV ONE (13:14)
[2024-05-17] MEDS ORDERED: Methylene Blue 1% 100 MG/10 ML VIAL ONE (13:37)
[2024-05-17] MEDS ORDERED: propofoL 50 ML IV ONE (14:18)
[2024-05-17] MEDS ORDERED: NS 500 ML IV ONE (14:26)
[2024-05-17 15:13] VITALS: BP 109/76
== END 2024-05-17 15:10 | disposition home or self-care (01) ==
LOC: ORSCSDS 12:15
PROVIDERS: Internal Medicine Gastroenterology
PROC: 0DBK8ZX Excision of Ascending Colon, Via Natural or Artificial Opening Endoscopic, Diagnostic (ICD-10-PCS; principal; 2024-05-17 13:45)
PROC: 0DBH8ZX Excision of Cecum, Via Natural or Artificial Opening Endoscopic, Diagnostic (ICD-10-PCS; principal; 2024-05-17 13:45)
PROC: 3E0H8KZ Introduction of Other Diagnostic Substance into Lower GI, Via Natural or Artificial Opening Endoscopic (ICD-10-PCS; principal; 2024-05-17 13:45)
DX: D12.0 Benign neoplasm of cecum (principal); D12.2 Benign neoplasm of ascending colon; K57.30 Diverticulosis of large intestine without perforation or abscess without bleeding; Z15.09 Genetic susceptibility to other malignant neoplasm; Z80.0 Family history of malignant neoplasm of digestive organs; G47.33 Obstructive sleep apnea (adult) (pediatric); K21.9 Gastro-esophageal reflux disease without esophagitis; R12 Heartburn; I10 Essential (primary) hypertension; F41.8 Other specified anxiety disorders; E78.2 Mixed hyperlipidemia; Z95.2 Presence of prosthetic heart valve; Z95.0 Presence of cardiac pacemaker; I25.10 Atherosclerotic heart disease of native coronary artery without angina pectoris; Z79.899 Other long term (current) drug therapy
CPT/HCPCS: 88305; J2704; J7120; Q9968

== ENCOUNTER 2025-01-10 17:19 | Emergency (ER) | payer OTHER ==
[~2025-01-10] VITALS: Ht 167.6 cm; Wt 83.0 kg
[~2025-01-10 17:19] MED LIST changes: -Lactated Ringer's 1,000 ML IV ONE; -propofoL 50 ML IV ONE
[2025-01-10] MEDS ORDERED: Ondansetron HCl 2 MG / ML 2ML Vial IV ONE (17:35)
[2025-01-10 18:06] LABS: Hematocrit 32.9 % (37.0-53.0); Hemoglobin 11.9 g/dL (13.5-17.5); Mean Corpuscular HGB Conc 36.2 g/dL (31.5-36.5); Mean Corpuscular Volume 97 fL (80-100); Platelet Count 188 K/mm3 (150-400); RDW Coefficient Variation 12.6 % (11.7-14.2); RDW Standard Deviation 44.6 fL (35.1-46.3)
[2025-01-10 18:09] LABS: NRBC ABSOLUTE 0.00 K/mm3 (0.00-0.02); NRBC Auto 0.0 /100 WBC (0.0-0.2)
[2025-01-10 18:23] LABS: BASOPHILS ABSOLUTE MAN 0.00 K/mm3 (0.00-0.23); BASOPHILS PERCENT MAN 0 % (0-2); EOSINOPHILS ABSOLUTE MAN 0.61 K/mm3 (0.00-0.68); EOSINOPHILS PERCENT MAN 5 % (0-6); LYMPHOCYTES ABSOLUTE MAN 3.09 K/mm3 (0.84-5.20); LYMPHOCYTES PERCENT MAN 25 % (21-46); MONOCYTES ABSOLUTE MAN 0.61 K/mm3 (0.16-1.47); MONOCYTES PERCENT MAN 5 % (4-13); NEUTROPHILS ABSOLUTE MAN 8.05 K/mm3 (1.96-9.15); SEG NEUTROPHILS PERCENT MAN 65 % (41-73)
[2025-01-10 18:28] LABS: Alanine Aminotransfer (ALT/SGP 16.0 U/L (12-78); Albumin, Blood 3.6 g/dL (3.4-5.0); Albumin/Globulin Ratio 1.1 (0.8-1.8); Anion Gap 8.0 mmol/L (3-11); Aspartate Aminotrans (AST/SGOT 19.0 U/L (12-37); Bilirubin, Total 1.0 mg/dL (0.1-1.0); Blood Urea Nitrogen 18.0 mg/dL (8-24); CO2, Blood 32.0 mmol/L (21-32); Calcium, Blood 9.3 mg/dL (8.5-10.1); Chloride, Blood 95.0 mmol/L (98-108); Creatinine, Blood 0.9 mg/dL (0.60-1.20); Globulin, Blood 3.4 g/dL (2.2-4.0); Glucose, Blood 104.0 mg/dL (70-99); Potassium, Blood 2.8 mmol/L (3.5-5.5); Sodium, Blood 132.0 mmol/L (136-145); Total Protein, Blood 7.0 g/dL (6.4-8.2)
[2025-01-10] MEDS ORDERED: Metoclopramide HCl 5MG / ML 2ML Vial IV ONE (19:50)
[2025-01-10] MEDS ORDERED: DiphenhydrAMINE HCl 50 MG/ML 1ML Vial IV ONE (19:50)
[2025-01-10 20:02] LABS: Magnesium, Blood 1.6 mg/dL (1.6-2.4)
[2025-01-10] MEDS ORDERED: Magnesium Sulf 2 GM/Water 50ML 50 ML IV ONE (20:40)
[2025-01-10] MEDS ORDERED: Potassium Chl 20MEQ/Water100ML 100 ML IV ONE (20:45)
[2025-01-10 20:57] LABS: Ethanol (Alcohol), Blood, Med <3 mg/dL
[2025-01-10] MEDS ORDERED: NS 1,000 ML IV ONE (21:42)
[2025-01-10] MEDS ORDERED: NS 1,000 ML IV SCH (22:20)
[2025-01-11 01:00] VITALS: BP 113/85
[2025-01-11] MEDS ORDERED: PROC25S PR (01:12)
[2025-01-11] MEDS ORDERED: OXAYDO5 M1 PO (01:12)
[2025-01-11] MEDS ORDERED: PANT40 PO (01:12)
[2025-01-11] MEDS ORDERED: ONDA4ODT MM (01:12)
[2025-01-11] MEDS ORDERED: FentaNYL Citrate 50 MCG/ML 2 ML Injection IV ONE (01:15)
== END 2025-01-11 01:29 | disposition home or self-care (01) ==
LOC: ER 17:19
PROVIDERS: Emergency Medicine; Student in an Organized Health Care Education/Training Program
DX: K85.90 Acute pancreatitis without necrosis or infection, unspecified (principal); E87.6 Hypokalemia; E83.42 Hypomagnesemia; E87.1 Hypo-osmolality and hyponatremia; D64.9 Anemia, unspecified; R00.2 Palpitations; Q23.81 Bicuspid aortic valve; Z95.0 Presence of cardiac pacemaker; Z91.048 Other nonmedicinal substance allergy status; Z79.890 Hormone replacement therapy; Z79.899 Other long term (current) drug therapy
CPT/HCPCS: 71275; 74174; 80053; 80320; 83690; 83735; 83880; 84484; 85025; 86850; 86900; 86901; 93005; 93010; 96365-59; 96368; 96375; 96375-59; 99285-25; A9270; J1200; J2405; J2765; J3010; J3475; J3480; J7030; Q9967

== ENCOUNTER 2025-01-29 18:53 | Emergency (ER) | payer OTHER ==
[~2025-01-29] VITALS: Ht 177.8 cm; Wt 82.5 kg
[~2025-01-29 18:53] MED LIST changes: +OXAYDO5 M1 PO; +PROC25S PR
[2025-01-29 19:41] LABS: BASOPHILS ABSOLUTE AUTO 0.06 K/mm3 (0.00-0.23); BASOPHILS PERCENT AUTO 1 % (0-2); EOSINOPHILS ABSOLUTE AUTO 0.43 K/mm3 (0.00-0.68); EOSINOPHILS PERCENT AUTO 4 % (0-6); Hematocrit 30.8 % (37.0-53.0); Hemoglobin 11.0 g/dL (13.5-17.5); IMMATURE GRAN ABSOLUTE AUTO 0.03 K/mm3 (0.00-0.10); IMMATURE GRAN PERCENT AUTO 0 % (0-1); LYMPHOCYTES ABSOLUTE AUTO 3.46 K/mm3 (0.84-5.20); LYMPHOCYTES PERCENT AUTO 34 % (21-46); MONOCYTES ABSOLUTE AUTO 0.86 K/mm3 (0.16-1.47); MONOCYTES PERCENT AUTO 8 % (4-13); Mean Corpuscular HGB Conc 35.7 g/dL (31.5-36.5); Mean Corpuscular Volume 99 fL (80-100); NEUTROPHILS ABSOLUTE AUTO 5.34 K/mm3 (1.96-9.15); NEUTROPHILS PERCENT AUTO 53 % (41-73); NRBC ABSOLUTE 0.00 K/mm3 (0.00-0.02); NRBC Auto 0.0 /100 WBC (0.0-0.2); Platelet Count 158 K/mm3 (150-400); RDW Coefficient Variation 13.2 % (11.7-14.2); RDW Standard Deviation 47.3 fL (35.1-46.3)
[2025-01-29 19:58] LABS: Magnesium, Blood 2.1 mg/dL (1.6-2.4)
[2025-01-29] MEDS ORDERED: Morphine Sulfate 4 MG/1 ML Injection IV ONE ×2 (20:00→21:20)
[2025-01-29 20:02] LABS: Alanine Aminotransfer (ALT/SGP 19.0 U/L (12-78); Albumin, Blood 3.5 g/dL (3.4-5.0); Albumin/Globulin Ratio 1.1 (0.8-1.8); Anion Gap 6.0 mmol/L (3-11); Aspartate Aminotrans (AST/SGOT 17.0 U/L (12-37); Bilirubin, Total 0.5 mg/dL (0.1-1.0); Blood Urea Nitrogen 22.0 mg/dL (8-24); CO2, Blood 32.0 mmol/L (21-32); Calcium, Blood 8.6 mg/dL (8.5-10.1); Chloride, Blood 105.0 mmol/L (98-108); Creatinine, Blood 1.29 mg/dL (0.60-1.20); Globulin, Blood 3.3 g/dL (2.2-4.0); Glucose, Blood 120.0 mg/dL (70-99); Potassium, Blood 3.0 mmol/L (3.5-5.5); Sodium, Blood 140.0 mmol/L (136-145); Total Protein, Blood 6.8 g/dL (6.4-8.2)
[2025-01-29 20:59] LABS: Prothrombin Time Results 11.6 Sec (9.7-11.5)
[2025-01-29] MEDS ORDERED: NS 1,000 ML IV SCH (21:20)
[2025-01-29 23:15] VITALS: BP 133/96
[2025-01-29] MEDS ORDERED: ACET500 PO (23:17)
[2025-01-29] MEDS ORDERED: ONDA4 PO (23:17)
== END 2025-01-29 23:30 | disposition home or self-care (01) ==
LOC: ER 18:53
PROVIDERS: Emergency Medicine
DX: K85.90 Acute pancreatitis without necrosis or infection, unspecified (principal); R07.2 Precordial pain; I10 Essential (primary) hypertension; E03.9 Hypothyroidism, unspecified; E78.5 Hyperlipidemia, unspecified; I71.21 Aneurysm of the ascending aorta, without rupture; Z91.09 Other allergy status, other than to drugs and biological substances; Z79.899 Other long term (current) drug therapy; Z79.890 Hormone replacement therapy
CPT/HCPCS: 71275; 74174; 80053; 83690; 83735; 83880; 84484; 85025; 85610; 85730; 93005; 93010; 96374-59; 96375-59; 99285-25; J2270; J7030; Q9967